=== PATIENT | female | born 1960 | race Caucasian/White ===

== ENCOUNTER → 2016-11-19 | Day surgery (SDC) | payer OTHER ==
[~2016-11-19] VITALS: Ht 152.4 cm; Wt 99.3 kg
[~2016-11-19] MED LIST: BUSPIRONE HCL15 MG PO; CETIRIZINE HCL10 MG PO; DULOXETINE HCL60 MG PO; HYDROCHLOROTH12.5 MG PO; HYDROXYZINE HCL25 MG PO; LISINOPRIL30 MG PO; LYRICA100 MG PO; LYRICA200 MG PO; MONTELUKAST SOD10 MG PO; PROTONIX 20 MG20 MG PO; TIZANIDINE HCL4 MG PO; TYLENOL W/CODEIN1 E1 PO; ZANTAC150 MG PO
[2016-11-19 09:46] LABS: HEMOGLOBIN 12.5 gm/dl (12.3-15.3); RED BLOOD COUNT 4.35 M/UL (4.00-5.10); WHITE BLOOD COUNT 9.1 K/UL (4.5-11.0)
== END | disposition home or self-care (01) ==
LOC: OR 07:45
PROVIDERS: Orthopaedic Surgery
PROC: 0PSJ04Z Reposition Left Radius with Internal Fixation Device, Open Approach (ICD-10-PCS; principal; 2016-11-19 12:15)
DX: S52.572A Other intraarticular fracture of lower end of left radius, initial encounter for closed fracture (principal); I10 Essential (primary) hypertension; M19.90 Unspecified osteoarthritis, unspecified site; K21.9 Gastro-esophageal reflux disease without esophagitis; J45.909 Unspecified asthma, uncomplicated; J44.9 Chronic obstructive pulmonary disease, unspecified; M79.7 Fibromyalgia; Z90.49 Acquired absence of other specified parts of digestive tract; Z88.8 Allergy status to other drugs, medicaments and biological substances; Z79.891 Long term (current) use of opiate analgesic; Z79.899 Other long term (current) drug therapy; Z90.710 Acquired absence of both cervix and uterus
CPT/HCPCS: 36415; 71010; 73100; 76000; 80048; 85027; 93005; C1713; J0690; J2250; J2795; J3010; J7120